=== PATIENT | male | born 1970 | race Caucasian/White ===

== ENCOUNTER 2018-04-14 08:45 | Inpatient (IN) | payer OTHER ==
[2018-04-14] MEDS ORDERED: HYDROmorphONE/DILAUDID 2 MG/ML INJ IVP ONE (09:13)
--- NOTE | 2018-04-14 09:17 | EDPHY ---
H & P Time Seen by Provider: 04/14/18 09:02 HPI/ROS: CHIEF COMPLAINT: Left knee injury HISTORY OF PRESENT ILLNESS: 47-year-old male presents to the emergency department complaining of severe pain in his left knee and left leg. The patient was at work and was coming down a ladder that slipped and his leg went through the [place] of the ladder. He complains of severe pain in his left knee and his left leg. He is unable to bear weight and unable to fully extend his left knee secondary to severe pain. He did not hit his head or lose consciousness. Denies neck or back pain. Denies pain in his chest or difficulty breathing. Denies abdominal pain. Denies injuries to the right lower extremity or upper extremities bilaterally. He believes his tetanus shot is current. He last had some juice and water at 730 this morning. No solid food today. REVIEW OF SYSTEMS: Constitutional: No fever, no chills. Eyes: No double or blurry vision. ENT: No sore throat. Respiratory: No cough, no shortness of breath. Cardiac: No chest pain. Gastrointestinal: No abdominal pain, vomiting or diarrhea. Genitourinary: No dysuria. Musculoskeletal: No neck or back pain. Skin: Abrasions. No rashes. Neurological: No headache. Past Medical/Surgical History: Marijuana use Social History: Works in [employer] Smoking Status: Heavy smoker Physical Exam: General Appearance: Alert, moderate to severe distress. Moaning. Eyes: Pupils equal and round. Extraocular motions are all intact. ENT: Mouth: Mucous membranes moist. Respiratory: No wheezing, rhonchi, or rales, lungs are clear to auscultation. Cardiovascular: Regular rate and rhythm. Gastrointestinal: Abdomen is soft and nontender, no masses, no rebound or guarding, bowel sounds normal. Neurological: Alert and oriented x 3, cranial nerves II through XII grossly intact Skin: Superficial abrasions noted to the anterior and medial aspect of the right knee. There also superficial abrasions to his left lower leg and left anterior ankle. Warm and dry, no rashes. Musculoskeletal: Nontender to palpate along the cervical, thoracic or lumbar spine. Neck is supple. Extremities: The patient is holding his left knee in 90 degrees of flexion. He is unable to extend his left knee. Psychiatric: Patient is oriented X 3, there is no agitation. Constitutional: Initial Vital Signs Heart Rate 85 04/14/18 08:45 Respiratory Rate 18 04/14/18 08:45 O2 Sat (%) 99 04/14/18 08:45 O2 Delivery Mode Room Air Allergies/Adverse Reactions: No Known Allergies Allergy (Unverified 04/14/18 08:50) Home Medications: Medication Instructions Recorded NK [No Known Home Meds] 04/14/18 Medical Decision Making - Diagnostics Imaging Results: Imaging Impressions Knee X-Ray 04/14/18 08:58 Impression: Severely comminuted proximal tibial fracture. PORTABLE CROSSTABLE LATERAL LEFT TIBIA-FIBULA, at 9:31 AM: There is incomplete visualization of the aforementioned proximal tibial fracture. The fibular shaft is intact, as are the mid and distal portions of the tibial shaft. There is no ankle joint effusion. Impression: Comminuted proximal tibial fracture. Tibia/Fibula X-Ray 04/14/18 09:12 Impression: Severely comminuted proximal tibial fracture. PORTABLE CROSSTABLE LATERAL LEFT TIBIA-FIBULA, at 9:31 AM: There is incomplete visualization of the aforementioned proximal tibial fracture. The fibular shaft is intact, as are the mid and distal portions of the tibial shaft. There is no ankle joint effusion. Impression: Comminuted proximal tibial fracture. Extremity CT 04/14/18 12:02 Impression: 1. Complex tibial plateau fracture with splaying of fracture fragments. 2. Medial subluxation of the distal femur with respect to the proximal tibia. 3. Hemarthrosis involving the knee joint, suprapatella bursa, and Mckenzie's cyst with fluid fat levels related to the recent fracture. 4. Scattered gas bubbles are present as detailed above. This could be associated with a laceration or open fracture. Imaging: Discussed imaging studies w/ director call Radiologist, I viewed and interpreted images myself ED Course/Re-evaluation: 47-year-old male presents to the emergency department with severe left knee pain. The patient initially was unable to extend the left knee beyond 90 degrees. He was given a total of 2 mg of IV Dilaudid and 5 mg of IV Valium. He was able to extend his left knee out a bit more. He maintain good peripheral pulses including posterior tibial and dorsalis pedis. I spoke with the on-call orthopedic surgeon, Dr. Kiley Orellana, who also evaluated the patient's x-rays and recommended that he be splinted. The patient will require surgery but Dr. Kiley Orellana would like to ideally wait for 1 week to surgically repair this if possible. He understands the patient is in significant distress as far as pain and he required 5 people to help assist him into the bed. He will be admitted to the hospitalist Dr. Kiley Orellana will come evaluate the patient in the hospital to discuss surgical options. Dr. Kiley Orellana recommended obtaining CT scan of the patient's left knee while he was in the emergency department. CT scan was reviewed by Dr. Tres Quiroz. He did report that there were some scattered gas bubbles within the joint with concerns for possible open fracture. On examination there is a superficial abrasion to the anterior medial aspect of the knee however no evidence of puncture wound or evidence of open fracture. This was discussed with supervising physician, Dr. Lucie Serrano, who also evaluated the patient and agrees that there is no evidence of open fracture on exam. The patient has had no previous surgeries to his knee or aspiration or tap of the knee. Waiting to hear back from Dr. Kiley Orellana regarding findings on CT scan. Spoke with Dr. Kiley Orellana who will look at the patient's CT scan. He did not recommend any antibiotics. He was not concerned about the gas bubbles seen on CT scan. Again clinically I do not think this patient has an open fracture. He will be sent to the floor admitted to hospitalist. Differential Diagnosis: Including but not limited to fracture, dislocation, contusion, sprain, internal derangement of the left knee, vascular compromise - Data Points Laboratory Results: Laboratory Results 04/14/18 09:15 04/14/18 09:15 04/14/18 04/14/18 09:15 09:15 WBC 15.72 10^3/uL H 10^3/uL (3.80-9.50) RBC 5.19 10^6/uL 10^6/uL (4.40-6.38) Hgb 15.7 g/dL g/dL (13.7-17.5) Hct 45.9 % % (40.0-51.0) MCV 88.4 fL fL (81.5-99.8) MCH 30.3 pg pg (27.9-34.1) MCHC 34.2 g/dL g/dL (32.4-36.7) RDW 13.0 % % (11.5-15.2) Plt Count 386 10^3/uL 10^3/uL (150-400) MPV 9.1 fL fL (8.7-11.7) Neut % (Auto) 66.1 % % (39.3-74.2) Lymph % (Auto) 25.6 % % (15.0-45.0) Posey % (Auto) 6.2 % % (4.5-13.0) Eos % (Auto) 0.9 % % (0.6-7.6) Baso % (Auto) 0.4 % % (0.3-1.7) Nucleat RBC Rel Count 0.0 % % (0.0-0.2) Absolute Neuts (auto) 10.40 10^3/uL H 10^3/uL (1.70-6.50) Absolute Lymphs (auto) 4.03 10^3/uL H 10^3/uL (1.00-3.00) Absolute Monos (auto) 0.97 10^3/uL H 10^3/uL (0.30-0.80) Absolute Eos (auto) 0.14 10^3/uL 10^3/uL (0.03-0.40) Absolute Basos (auto) 0.06 10^3/uL 10^3/uL (0.02-0.10) Absolute Nucleated RBC 0.00 10^3/uL 10^3/uL (0-0.01) Immature Gran % 0.8 % % (0.0-1.1) Immature Gran # 0.12 10^3/uL H 10^3/uL (0.00-0.10) Sodium 137 mEq/L mEq/L (135-145) Potassium 4.2 mEq/L mEq/L (3.3-5.0) Chloride 101 mEq/L mEq/L (97-110) Carbon Dioxide 21 mEq/l L mEq/l (22-31) Anion Gap 15 mEq/L mEq/L (8-16) BUN 15 mg/dL mg/dL (7-23) Creatinine 1.0 mg/dL mg/dL (0.7-1.3) Estimated GFR > 60 Glucose 180 mg/dL H mg/dL (70-100) Calcium 9.4 mg/dL mg/dL (8.5-10.4) Medications Given: Hydromorphone HCl (Dilaudid) 2 mg PO Q4HRS PRN PRN Reason: Pain, Severe Able to Take PO Stop: 04/24/18 13:30 Last Admin: 04/14/18 15:16 Dose: 2 mg Hydromorphone HCl (Dilaudid) 0.2 - 0.4 mg IVP Q4HRS PRN PRN Reason: Pain, Severe Unable to Take PO Stop: 04/24/18 13:30 Last Admin: 04/14/18 14:37 Dose: 0.4 mg Discontinued Medications Diazepam (Valium) 5 mg IVP EDNOW ONE Stop: 04/14/18 11:06 Last Admin: 04/14/18 11:20 Dose: 5 mg Diazepam (Valium) 5 mg IVP EDNOW ONE Stop: 04/14/18 12:39 Last Admin: 04/14/18 12:48 Dose: 5 mg Hydromorphone HCl (Dilaudid) 1 mg IVP EDNOW ONE Stop: 04/14/18 09:14 Last Admin: 04/14/18 09:19 Dose: 1 mg Hydromorphone HCl (Dilaudid) 1 mg IVP EDNOW ONE Stop: 04/14/18 09:52 Last Admin: 04/14/18 09:54 Dose: 1 mg Departure - Departure Disposition: [facility] Inpatient Acute Clinical Impression: Closed fracture of left proximal tibia Qualifiers: Encounter type: initial encounter Fracture morphology: unspecified fracture morphology Qualified Code(s): S82.102A - Unspecified fracture of upper end of left tibia, initial encounter for closed fracture Condition: Fair
[2018-04-14] MEDS ORDERED: HYDROmorphONE/DILAUDID 1 MG/ML INJ IVP ONE (09:51)
[2018-04-14] MEDS ORDERED: DIAZEPAM 5 MG/ML 1 ML SYR IVP ONE ×2 (11:05→12:38)
[2018-04-14 13:04] LABS: PLATELET COUNT 386 10^3/uL (150-400)
[2018-04-14] MEDS ORDERED: ONDANSETRON DISINTEGRATING 4 MG TAB PO PRN (13:31)
[2018-04-14] MEDS ORDERED: ONDANSETRON 4 MG/2 ML VIAL IVP PRN (13:31)
[2018-04-14] MEDS ORDERED: ACETAMINOPHEN 325 MG TAB PO PRN (13:31)
[2018-04-14] MEDS ORDERED: LORazepam 2 MG/ML INJ IVP PRN (13:31)
[2018-04-14] MEDS: HYDROmorphONE/DILAUDID 1 MG/ML INJ IVP PRN ×2 (14:37→18:35)
[2018-04-14] MEDS: HYDROmorphONE/DILAUDID 2 MG TAB PO PRN ×2 (15:16→19:25)
--- NOTE | 2018-04-14 15:21 | GHP ---
DATE OF ADMISSION: 04/14/2018 CHIEF COMPLAINT: Left knee pain. HISTORY OF PRESENT ILLNESS: The patient is a 47-year-old male who presented to the emergency room [place] [facility] today complaining of severe pain in his left knee and leg. The patient was at work and was climbing down off a ladder, when he slipped and his leg went through the hole of the ladder. He stat es he was feeling fine until this point. He is unable to bear weight and unable to fully extend his left knee secondary to pain. He did not hit his head, lose any consciousness. He denies any neck or back pain. He denies any chest pain, shortness of breath or dyspnea. He has no abdominal pain. De nies any other injuries, has no other specific complaints. REVIEW OF SYSTEMS: A comprehensive 10-point review of systems is negative other than noted in the HP I. PAST MEDICAL HISTORY: Benign. PAST SURGICAL HISTORY: Benign. SOCIAL HISTORY: The patient smokes marijuana occasionally. He works in [employer]. He denies any othe r recreational drugs. He is a heavy smoker. FAMILY HISTORY: Noncontributory to this hospital course. PHYSICAL EXAM: VITAL SIGNS: Afebrile at 36.6, pulse 73, respiratory rate 17, blood pressure 153/97. He is saturating 97% on room air. GENERAL: The patient is alert, in moderate distress. HEENT: N ormocephalic, atraumatic. Mucosal membranes are moist. Pupils equal, round, reactive to light. RES PIRATORY: Lungs are clear to auscultation bilaterally. No rhonchi or wheezes noted. CARDIOVASCULAR : Reveals a regular rate and rhythm. No gallop or murmur appreciated. GASTROINTESTINAL/ABDOMEN: B owel sounds are positive. Soft and nontender. There is no guarding or rigidity noted. NEUROLOGICAL : The patient is intact with no focal deficits appreciated. SKIN: Superficial abrasions to the rig ht knee. Warm and dry. No rashes appreciated. MUSCULOSKELETAL: Intact. EXTREMITIES: Left knee h as pain. ALLERGIES: None. HOME MEDICATIONS: None. IMAGING: Knee x-ray noted severely comminuted proximal tibial fracture. Extremity CT noting a compl ex tibial plateau fracture with splaying of fracture fragments, as well as medial subluxation of the distal femur, as well as potential scattered gas bubbles. LABORATORY EVALUATION: White count is 15.7. ASSESSMENT AND PLAN: The patient is a 47-year-old male who presented to the emergency room with comp laints of severe left knee pain. He was evaluated and diagnosed with a left complex tibial plateau f racture secondary to slipping on a ladder. He will be admitted to the hospital for pain management, as he is unable to bear weight at this time. He has been consulted on by Dr. Orellana of Orthopedics. S urgical intervention will be warranted in the future, but Dr. Orellana would like to hold off at this liane e to see if the swelling can subside. We will continue pain management during this hospitalization. The patient's knee has been braced. He will be admitted to observation status, as I anticipate that his pain will be controlled and he will be able to be discharged from the hospital after a short sta y. I have reviewed the patient's care with Marcia Pratt of the emergency room. Further action will be taken as needed during the patient's hospitalization. He will be placed on Lovenox for deep veno us thrombosis prophylaxis. /[id number]/MODL
[2018-04-14] MEDS ORDERED: BISACODYL 10 MG SUPP PR PRN (16:35)
[2018-04-14] MEDS ORDERED: MAGNESIUM HYDROXIDE 30 ML UDCUP PO PRN (16:35)
[2018-04-14] MEDS ORDERED: LACTULOSE 20 GM/30 ML UDCUP PO PRN (16:35)
[2018-04-14] MEDS ORDERED: HYDROmorphONE/DILAUDID 1 MG/ML INJ IVP PRN (19:00)
[2018-04-14] MEDS ORDERED: NALOXONE HCL 0.4 MG/ML INJ IVP PRN (19:54)
--- NOTE | 2018-04-14 19:58 | GCON ---
INPATIENT CONSULTATION REPORT DATE OF CONSULTATION: 04/14/2018 CURRENT COMPLAINT: Left leg pain. HISTORY OF PRESENT ILLNESS: Mr. 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 He caught his leg within the rungs. Landed directly on the ground had pain and deformity at his leg. Seen in the emergency room. He was diagnosed with a tibial plateau fractu re. I was asked to see the patient for further evaluation. PHYSICAL EXAMINATION: The patient is in significant pain. He has a long leg posterior splint in [facility]. However, the bed he is currently in does not allow the leg to rise, so his knee is currently low er than his heart, which is creating more swelling. Attempt was made to move the foot of the bed wit hout result. His foot is neurologically intact on the dorsal, lateral, and plantar portions of the f oot. EHL and FHL remain intact. He has no pain to passive range of motion through the toes, suggest ing he does not have compartment syndrome. IMAGING: X-ray exam reveals a comminuted fracture of the proximal tibia, including the tibial platea u, particularly on the lateral side with impaction of the lateral femoral condyle into the knee. CT exam reveals even more comminution, with involvement of the medial condyle, making this a bicondylar tibial plateau fracture with involvement of the shaft. ASSESSMENT AND PLAN: Patient is status post left tibial plateau fracture, Bicondylar. Patient is go ing to need his leg and knee strictly elevated. Keeping the knee above the level of his heart at all times as much as possible for the next week or 2. Due to the severe nature of his injury, particula rly involving both condyles, it will take at least a week, if not 2, for the swelling to come down en ough in the leg to allow the skin to be opened and then closed again. Surgery done sooner than this will mean that the skin is unable to be closed after fracture fixation, creating further issues for t he patient. He is to increase his calcium intake. His pain medication was increased in order to cover the severe amount of pain he is going to [facility] for the next several days if not for over a week. He should not be given any antiinflammatories, so that a healing response can continue to occur. He has already been placed on blood thinners, whic h is going to be appropriate given the amount of sedentary activity he is going to have for the next several weeks. We will continue to monitor his skin over the next week or 2 and once he starts to morfin ve wrinkles within the skin, we will consider definitive fixation of his bicondylar tibial plateau fr acture. I will continue to follow the patient while he is here in the hospital. /[id number]/MODL
[2018-04-14] MEDS: HYDROmorphONE/DILAUDID 6 MG/30 ML PCA IV PRN (20:39)
[2018-04-15] MEDS: traMADol 50 MG TAB PO SCH ×4 (00:04→17:53)
[2018-04-15] MEDS: ACETAMINOPHEN 325 MG TAB PO SCH ×4 (00:04→17:52)
[2018-04-15] MEDS: HYDROmorphONE/DILAUDID 2 MG TAB PO PRN ×3 (00:05→13:01)
[2018-04-15] MEDS: SENNOSIDES/DOCUSATE SODIUM TAB PO SCH ×3 (00:35→21:10)
[2018-04-15] MEDS: DIAZEPAM 5 MG TAB PO PRN ×3 (01:03→17:53)
[2018-04-15] MEDS: HYDROmorphONE/DILAUDID 6 MG/30 ML PCA IV PRN (07:44)
[2018-04-15] MEDS: ENOXAPARIN 40 MG/0.4 ML SYR SC SCH (10:42)
--- NOTE | 2018-04-15 12:02 | ASMTCMCOM ---
CM Note CM Note Notes: 04/15/2018 Case Management Note Reviewed chart. Pt admitted after falling off a ladder for treatment of a left proximal tibial plateau fracture. Per Dr. Orellana note, swelling needs to decrease before surgery can be considered. 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 Pt was independent in ADLs prior to admission. PT evals are pending. Case Management d/c poc: to be determined. Case Management to follow. Date Signed: 04/15/2018 12:01 PM Electronically Signed By:Domonique Cao RN
--- NOTE | 2018-04-15 16:09 | SOAPPROG ---
SOAP Progress Note Assessment/Plan: Assessment: Plan: Subjective: states he's much more comfortable today but still has some pain splint intact remains NVI with neg pain to PROM of toes cont elevation and NWB will need to assess skin in approx one week Objective: Vital Signs Temp Pulse Resp BP Pulse Ox 37.0 C 74 17 162/96 H 97 04/15/18 14:00 04/15/18 14:00 04/15/18 14:00 04/15/18 14:00 04/15/18 14:00 04/14/18 04/15/18 04/16/18 05:59 05:59 05:59 Intake Total 1250 Output Total 300 Balance 950 ICD10 Worksheet Patient Problems: Problems Problem Status Onset Closed fracture of left proximal tibia Acute
--- NOTE | 2018-04-15 17:17 | ASMTCMCOM ---
CM Note CM Note Notes: OT rec inpatient rehab, PT rec SNF. Pt likely has no local support for d/c planning, not safe to return home. Pt likely not currently qualify/benefit from [facility] inpatient rehab due to NWB and minimal activity. Pt likely needs SNF to convalesce until surgery then will need to see what he needs/qualifies for. No [employer] claim #, [employer] worker is Zahra Quintana [phone] voicemail left for her late Wednesday they do not work weekends so possibly Wednesday before call is returned. CM to follow. D/c plan of care: TBD depending on what work comp will pay for Date Signed: 04/15/2018 04:58 PM Electronically Signed By:VANESSA Bauer
--- NOTE | 2018-04-15 17:40 | HOSPPROG ---
Hospitalist Progress Note Assessment/Plan: DIAGNOSES: * COMMINUTED PROXIMAL TIBIA FRACTURE AFTER FALL ON A LADDER * SIGNIFICANT EDEMA AT THE KNEE PRECLUDING CURRENT SURGICAL REPAIR * HYPERGLYCEMIA TIME OF ADMISSION, UNCERTAIN IF THERE FOR BUT SINCE ONSET OF TYPE 2 DIABETES OR STRESS FROM INJURY PLANS: * Continue elevation of leg and compression with Norris wraps * Pain management * DVT prophylaxis * Dr. Orellana is still recommending delaying surgery untill the patient has notable reduction and edema, reassess after weekend * Will check hemoglobin A1c and follow sugars here SUBJECTIVE: Still with some pain at knee but tolerating it reasonably well No other new symptoms OBJECTIVE VITALS REVIEWED: Stable without fever EXAM: ALERT ORIENTED, IN BED SUPINE WITH LEG ELEVATED ON PILLOWS IN NORRIS WRAPS SKIN WARM DRY COLOR OK RESPS NOT LABORED LUNGS CLEAR BSS HEART REGULAR ABD SOFT NONDISTENDED NONTENDER, BOWEL SOUNDS PRESENT LIMBS WARM, NO EDEMA; GOOD NEUROVASCULAR FUNCTION AT LEFT TOES IV SITE OK Objective: Vital Signs Temp Pulse Resp BP Pulse Ox 36.6 C 80 19 157/90 H 91 L 04/15/18 16:00 04/15/18 16:00 04/15/18 16:00 04/15/18 16:00 04/15/18 16:00 04/14/18 04/15/18 04/16/18 06:59 06:59 06:59 Intake Total 1250 Output Total 300 Balance 950 ICD10 Worksheet Patient Problems: Problems Problem Status Onset Closed fracture of left proximal tibia Acute
[2018-04-16] MEDS: traMADol 50 MG TAB PO SCH ×4 (00:57→18:06)
[2018-04-16] MEDS: ACETAMINOPHEN 325 MG TAB PO SCH ×4 (00:57→18:06)
[2018-04-16] MEDS: HYDROmorphONE/DILAUDID 6 MG/30 ML PCA IV PRN (00:58)
[2018-04-16] MEDS: SENNOSIDES/DOCUSATE SODIUM TAB PO SCH ×2 (10:09→20:52)
[2018-04-16] MEDS: POLYETHYLENE GLYCOL 3350 17 GM PKT PO PRN (10:09)
[2018-04-16] MEDS: ENOXAPARIN 40 MG/0.4 ML SYR SC SCH (10:09)
--- NOTE | 2018-04-16 12:24 | HOSPPROG ---
Hospitalist Progress Note Assessment/Plan: 47-year-old man fell off a ladder sustaining a commuted proximal tibial fracture. Swelling was too significant to proceed with surgery so the plan is to monitor him over the weekend with re-evaluation for surgery on Wednesday. His pain is well controlled currently. # commuted proximal tibia fracture, Dr. Orellana to re-evaluate on Wednesday * Continue leg elevation and pain control * DVT prophylaxis * pt needs additional midnight stay for pain contol and monitoring due to severity of fracture and need for surgical repair # hyperglycemia time of admission, most blood sugars have been stable since admission will discontinue blood sugars Subjective: Patient new to me and chart reviewed. 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 Objective: Vital Signs Temp Pulse Resp BP Pulse Ox 36.8 C 95 18 170/107 H 88 L 04/16/18 12:00 04/16/18 12:00 04/16/18 12:00 04/16/18 12:00 04/16/18 12:00 04/15/18 04/16/18 04/17/18 05:59 05:59 05:59 Intake Total 1250 300 Output Total 300 950 Balance 950 -650 - Physical Exam Constitutional: no apparent distress Eyes: PERRL Ears, Nose, Mouth, Throat: moist mucous membranes Cardiovascular: regular rate and rhythym Respiratory: no respiratory distress, clear to auscultation Gastrointestinal: normoactive bowel sounds Genitourinary: no bladder fullness Skin: warm Musculoskeletal: full muscle strength, other (Fracture left knee, wrapped in Norris wrap) Neurologic: AAOx3 Psychiatric: interacting appropriately ICD10 Worksheet Patient Problems: Problems Problem Status Onset Closed fracture of left proximal tibia Acute
[2018-04-16] MEDS: METHOCARBAMOL 750 MG TAB PO PRN ×2 (12:37→15:26)
[2018-04-16] MEDS ORDERED: HYDROmorphone HCL/NS 0.5 MG/ML SYR IVP PRN (13:00)
[2018-04-16] MEDS ORDERED: HYDROmorphone HCL 0.5 MG/0.5 ML SYR IVP PRN (15:00)
--- NOTE | 2018-04-16 15:00 | ASMTCMCOM ---
CM Note CM Note Notes: Pt be re-assessed Wednesday for potential surgery. PT is limited because pt cannot do much. OT rec SNF. Pt adamant he will not go to SNF or inpatient rehab, wants to go home or he may have a friend he can stay with. D/c plan of care: Pt trying to find a friend he can stay with at d/c Date Signed: 04/16/2018 02:59 PM Electronically Signed By:VANESSA Bauer
--- NOTE | 2018-04-16 17:30 | PDMN ---
Medical Necessity Medical necessity: MCG : pain management pt with pending sgy for comminuted proximal tibial fx. Pain controlled with CUSTOMS ENTRY CLERK awaiting re-eval from ortho. status change 04/16/@ 16:28
[2018-04-16] MEDS: HYDROmorphONE/DILAUDID 2 MG TAB PO PRN (20:52)
[2018-04-17] MEDS: ACETAMINOPHEN 325 MG TAB PO SCH ×4 (00:31→17:45)
[2018-04-17] MEDS: traMADol 50 MG TAB PO SCH ×4 (00:31→17:46)
[2018-04-17] MEDS: SENNOSIDES/DOCUSATE SODIUM TAB PO SCH ×2 (08:19→20:20)
[2018-04-17] MEDS: METHOCARBAMOL 750 MG TAB PO PRN (08:19)
[2018-04-17] MEDS: POLYETHYLENE GLYCOL 3350 17 GM PKT PO PRN (08:19)
[2018-04-17] MEDS: ENOXAPARIN 40 MG/0.4 ML SYR SC SCH (08:20)
[2018-04-17] MEDS: HYDROmorphONE/DILAUDID 2 MG TAB PO PRN ×2 (08:29→15:04)
--- NOTE | 2018-04-17 09:08 | HOSPPROG ---
Hospitalist Progress Note Assessment/Plan: 47-year-old man fell off a ladder sustaining a commuted proximal tibial fracture. Swelling was too significant to proceed with surgery so the plan is to monitor him over the weekend with re-evaluation for surgery on Wednesday. His pain is well controlled currently. # commuted proximal tibia fracture, Dr. Orellana to re-evaluate on Wednesday. Pain a little worse this morning, feels that splint has moved but also off of IV pain meds. * Continue leg elevation and pain control, discussed with Dr. Ferrara who will look at leg today * DVT prophylaxis * change muscle relaxant to scheduled * pt needs additional midnight stay for pain contol and monitoring due to severity of fracture and need for surgical repair # Elevated BP, Has checked it at grocery stores and it has been elevated, likely has HTN * add lisinopril. # hyperglycemia time of admission, most blood sugars have been stable since admission will discontinue blood sugars Subjective: Pt complains of more pain in knee, feels his splint has moved. Objective: Vital Signs Temp Pulse Resp BP Pulse Ox 36.6 C 97 16 160/96 H 95 04/17/18 08:00 04/17/18 08:00 04/17/18 08:00 04/17/18 08:00 04/17/18 08:00 04/16/18 04/17/18 04/18/18 05:59 05:59 05:59 Intake Total 1200 Output Total 450 225 Balance 750 -225 - Physical Exam Constitutional: uncomfortable Eyes: PERRL, EOMI Ears, Nose, Mouth, Throat: moist mucous membranes Cardiovascular: regular rate and rhythym Respiratory: no respiratory distress Gastrointestinal: normoactive bowel sounds, soft, non-tender abdomen Skin: warm Musculoskeletal: other (splint and aniya on left leg.) Neurologic: AAOx3 Psychiatric: interacting appropriately, not anxious ICD10 Worksheet Patient Problems: Problems Problem Status Onset Closed fracture of left proximal tibia Acute
[2018-04-17] MEDS: METHOCARBAMOL 750 MG TAB PO SCH ×3 (11:04→20:19)
[2018-04-17] MEDS: LISINOPRIL 10 MG TAB PO SCH (11:04)
[2018-04-18] MEDS: ACETAMINOPHEN 325 MG TAB PO SCH ×3 (01:27→13:12)
[2018-04-18] MEDS: traMADol 50 MG TAB PO SCH ×3 (01:27→13:11)
[2018-04-18] MEDS: HYDROmorphONE/DILAUDID 2 MG TAB PO PRN ×4 (03:04→16:08)
[2018-04-18] MEDS: METHOCARBAMOL 750 MG TAB PO SCH ×2 (05:34→13:12)
[2018-04-18 07:35] VITALS: BP 149/97
[2018-04-18] MEDS: LISINOPRIL 10 MG TAB PO SCH (08:33)
[2018-04-18] MEDS: SENNOSIDES/DOCUSATE SODIUM TAB PO SCH (08:40)
--- NOTE | 2018-04-18 11:05 | HOSPPROG ---
Hospitalist Progress Note Assessment/Plan: 47-year-old man fell off a ladder sustaining a commuted proximal tibial fracture. Swelling was too significant to proceed with surgery so the plan is to monitor him over the weekend with re-evaluation for surgery on Wednesday. His pain is getting a little bit worse over the last 12 hr. Having more muscle spasms. # commuted proximal tibia fracture, discussed with orthopedics PA who will have someone from her practice come see the patient today. Pain a little worse this morning, feeling sharp pains going down leg. * Continue leg elevation and pain control, * DVT prophylaxis * change muscle relaxant to scheduled * pt needs additional midnight stay for pain contol and monitoring due to severity of fracture and need for surgical repair # Elevated BP, Has checked it at grocery stores and it has been elevated, likely has HTN * add lisinopril. # hyperglycemia time of admission, most blood sugars have been stable since admission will discontinue blood sugars Subjective: Having more pain in his left leg describes shooting pain down the leg intermittently. Objective: Vital Signs Temp Pulse Resp BP Pulse Ox 36.6 C 74 16 149/97 H 95 04/18/18 07:35 04/18/18 07:35 04/18/18 07:35 04/18/18 07:35 04/18/18 07:35 04/17/18 04/18/18 04/19/18 05:59 05:59 05:59 Intake Total 1200 300 Output Total 450 225 Balance 750 75 - Physical Exam Constitutional: uncomfortable Cardiovascular: regular rate and rhythym Respiratory: no respiratory distress Musculoskeletal: other (Splint on left leg) ICD10 Worksheet Patient Problems: Problems Problem Status Onset Closed fracture of left proximal tibia Acute
--- NOTE | 2018-04-18 12:20 | SOAPPROG ---
MAILCK Progress Note Assessment/Plan: Assessment: Jose R is s/p left tibial plateau fracture after falling off of a ladder. He reports his pain is some worse today with shooting pain down the pavon. He denies any numbness, tingling, etc PE: Upon evaluation left leg. Well molded posterior splint in place. Padding was opened up and skin was evaluated. Skin is taught due to swelling. Moderate swelling but compartments are soft throughout the lower leg. No pain with compression of the calf. DP pulse 2+. Patient able to dorsiflex and plantarflex the digits. Sensation is intact to light touch. Plan: This patient was discussed with Dr. Alaniz. The skin is too taught at this point to do surgery. It is likely that it will be several days to a week before the swelling is down enough to do surgery. He will remain NWB in the posterior splint with the leg elevated. 04/18/18 15:34 Objective: Vital Signs Temp Pulse Resp BP Pulse Ox 36.6 C 74 16 149/97 H 95 04/18/18 07:35 04/18/18 07:35 04/18/18 07:35 04/18/18 07:35 04/18/18 07:35 04/17/18 04/18/18 04/19/18 05:59 05:59 05:59 Intake Total 1200 300 Output Total 450 225 Balance 750 75 ICD10 Worksheet Patient Problems: Problems Problem Status Onset Closed fracture of left proximal tibia Acute
--- NOTE | 2018-04-18 15:49 | GDS ---
DIAGNOSES: 1. Complex tibial plateau fracture. 2. High blood pressure. PROCEDURES DONE: Extremity CT confirming complex tibial plateau fracture with splaying of fracture f ragments and medial subluxation of the distal femur with respect to the proximal tibia. CONSULTATIONS: Dr. Kiley Orellana, orthopedics. HOSPITAL COURSE: The patient is a 47-year-old admitted after he fell off a ladder. He sustained a c omplex tibial plateau fracture and was admitted initially and evaluated by Dr. Orellana. At the time of initial evaluation, he had significant swelling at the site of his leg, so Dr. Orellana was unable to pro ceed with surgery, although the patient does have a surgical fracture. He was monitored in the [facility] for pain control as well as swelling and his pain has become better managed with oral medications . However, the swelling is still persistent and he needs surgery at a later date unfortunately. He is to follow up with Dr. Nando Alaniz at [facility] for orthopedics at the end of the week for f urther evaluation of his leg and swelling. In the meantime, I will discharge him with Robaxin for mu scle relaxants and Dilaudid orally for pain. The patient also had notable increased blood pressure during his hospitalization and was started on l isinopril. CONDITION ON DISCHARGE: Good. He is comfortable. Vital signs are stable except for slightly elevat ed blood pressure. MEDICATIONS ON DISCHARGE: Please see medicine discharge med sheet. FOLLOWUP: The patient needs to follow up with Dr. Alaniz for his tibial plateau fracture at the en d of the week. The patient is to follow up with Ak[facility] for blood pressure recheck on his lisinopril. Total time spent in consultation with patient on day of discharge and coordination of care is 35 cholo hima. /[id number]/MODL
== END 2018-04-18 16:49 | disposition home or self-care (01) | DRG 563 ==
LOC: F3N 14:17 → OBSVTOIN 04-16 16:28
PROVIDERS: ADMIT Internal Medicine; ATTEND Internal Medicine
DX: S82.142A Displaced bicondylar fracture of left tibia, initial encounter for closed fracture (principal); W11.XXXA Fall on and from ladder, initial encounter; I10 Essential (primary) hypertension; R73.9 Hyperglycemia, unspecified
CPT/HCPCS: 96374; 97116-GP; 97161-GP; 97165-GO; 97530-GO; 97535-GO; G0378; J1170; J1650; J3360

== ENCOUNTER 2018-04-25 07:39 | Observation (INO) | payer OTHER ==
--- NOTE | 2018-04-22 14:38 | GHP ---
DATE OF ADMISSION: 04/25/2018 DATE OF PLANNED PROCEDURE: April 25, 2013. PLANNED PROCEDURE: Open reduction, internal fixation, left tibial plateau fracture. 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 He was initially admitted to the hospital for pain control and compartment checks. However, he w as too swollen initially to undergo surgery. He then was discharged home. He returned back to the [facility] last week. Swelling has subsided substantially, so we have decided to proceed with an open red uction, internal fixation of his tibial plateau fracture. PAST MEDICAL HISTORY: None. PAST SURGICAL HISTORY: None. MEDICATIONS: Dilaudid 2 mg, lisinopril 10 mg, and methocarbamol 750 mg. ALLERGIES: No known drug allergies. SOCIAL HISTORY: He smokes 1 pack per day. Reports occasional alcohol use. He does use marijuana. He works for [employer]. He does live alone here in town. REVIEW OF SYSTEMS: No shortness of breath, chest pain. Otherwise, review of systems unremarkable. PHYSICAL EXAM: Vital SIGNS: He is 6 feet 2 inches tall, weighs 220 pounds. Blood pressure is 131/7 6, pulse is 87, respiratory rate is 16 on room air. GENERAL: Alert and oriented x3. HEENT: Normoc ephalic, atraumatic. Extraocular muscles intact. NECK: Supple. There is no lymphadenopathy. No J VD. CHEST: Clear to auscultation. CARDIOVASCULAR: Regular rate and rhythm. ABDOMEN: Soft, nonte nder, nondistended. EXTREMITIES: Left lower extremity is in a long-leg splint. This was removed in the clinic today to inspect his skin. It is intact. He has a superficial abrasion over the anterio r compartment of his leg. It is healing nicely. There is a 2+ effusion to the knee. Lower extremit y compartments are swollen, but soft. 2+ dorsalis pedis and posterior tibial pulses. He has good an kle dorsiflexion, inversion and eversion all measuring 5/5. X-RAYS: CT scans are reviewed. He has a bicondylar split depression fracture of the lateral tibial condyle and a smaller posterior medial fracture. ASSESSMENT: Bicondylar tibial plateau fracture, left. PLAN: We will proceed with open reduction, internal fixation of his tibial plateau fracture on at the hospital. We placed him into a knee immobilizer. He is to continue to ice and elevate over the weekend. I renewed his prescription for Dilaudid. He will need this postoperatively as well. We will admit him overnight for observation due to the high risk of compartment syndrome following th is complex injury. He understands that. His preoperative paperwork was completed. Risks and benefi ts including infection, nonunion and malunion were all discussed. Posttraumatic arthritis in the kne e joint was discussed as well. He understands these risks and wished to proceed. /[id number]/MODL
[2018-04-25] MEDS ORDERED: ceFAZolin 2 GM/DEXTROSE 100 ML IV ONE (07:47)
[2018-04-25] MEDS ORDERED: LIDOCAINE 1% 2 ML INJ ID PRN (07:49)
[2018-04-25] MEDS ORDERED: LR 1,000 ML IV ONE (07:49)
[2018-04-25] MEDS ORDERED: ONDANSETRON 4 MG/2 ML VIAL ONE ×2 (08:50→11:05)
[2018-04-25] MEDS ORDERED: DEXAMETHASONE 4 MG/ML VIAL ONE ×2 (08:50→11:05)
[2018-04-25] MEDS ORDERED: LIDOCAINE 2% 100 MG/5 ML SYR ONE (08:50)
[2018-04-25] MEDS ORDERED: MIDAZOLAM 2 MG/2 ML VIAL ONE (08:50)
[2018-04-25] MEDS ORDERED: LIDOCAINE 0.5% 50 ML SDV ONE (08:50)
[2018-04-25] MEDS ORDERED: fentaNYL 250 MCG/5 ML INJ ONE (08:51)
--- NOTE | 2018-04-25 08:58 | PDANEPAE ---
ANE History of Present Illness L tibial Plateau Fx ORIF ANE Past Medical History - Cardiovascular History Hx Hypertension: Yes Hx Arrhythmias: No Hx Chest Pain: No Hx Coronary Artery / Peripheral Vascular Disease: No Hx CHF / Valvular Disease: No Hx Palpitations: No - Pulmonary History Hx COPD: No Hx Asthma/Reactive Airway Disease: No Hx Recent Upper Respiratory Infection: No Hx Oxygen in Use at Home: No Hx Sleep Apnea: No Sleep Apnea Screening Result - Last Documented: Positive - Neurologic History Hx Cerebrovascular Accident: No Hx Seizures: No Hx Dementia: No - Endocrine History Hx Diabetes: No - Renal History Hx Renal Disorders: No - Liver History Hx Hepatic Disorders: No - Neurological & Psychiatric Hx Hx Neurological and Psychiatric Disorders: No - Cancer History Hx Cancer: No - Congenital Disorder History Hx Congenital Disorders: No - GI History Hx Gastrointestinal Disorders: No - Other Health History Other Health History: FELL 04/14/18 SUSTAINING LT KNEE FX - Chronic Pain History Chronic Pain: No - Surgical History Prior Surgeries: NEG ANE Review of Systems Review of Systems: - Exercise capacity METS (RN): 5 METS ANE Patient History - Allergies Allergies/Adverse Reactions: No Known Allergies Allergy (Unverified 04/14/18 08:50) - NPO status NPO Since - Liquids (Date): 04/25/18 NPO Since - Liquids (Time): 07:00 NPO Since - Solids (Date): 04/24/18 NPO Since - Solids (Time): 19:30 - Smoking Hx Smoking Status: Heavy smoker - Family Anes Hx Family Hx Anesthesia Complications: NEG ANE Labs/Vital Signs - Vital Signs Blood Pressure: 119/80 Heart Rate: 86 Respiratory Rate: 15 O2 Sat (%): 96 Height: 187.96 cm Weight: 99.79 kg
--- NOTE | 2018-04-25 09:22 | PDHPUP ---
History & Physical Update H&P update statement: This history and physical update is based on an assessment of the patient which was completed after admission or registration (within 24 hours), but prior to the surgery/procedure. H&P update: H&P reviewed & patient examined, no change in patient's condition since H&P completed
[2018-04-25] MEDS ORDERED: POLYMYXIN B SULFATE 500,000 UNIT/10 ML SYR IRR ONE (09:33)
[2018-04-25] MEDS ORDERED: BUPIVACAINE/EPI 0.5% 30 ML SDV ONE (09:33)
[2018-04-25] MEDS ORDERED: THROMBIN (BOVINE) 5,000 UNIT VIAL TP ONE (10:16)
[2018-04-25] MEDS ORDERED: CALCIUM CHLORIDE 1 GM/10 ML INJ ONE (10:16)
[2018-04-25] MEDS ORDERED: PHENYLEPHRINE 10 MG/ML SDV ONE ×2 (10:36→11:13)
[2018-04-25] MEDS ORDERED: BUPIVACAINE/DEXTROSE 7.5MG/ML 2 ML SPINAL AMP SP ONE (10:36)
[2018-04-25] MEDS ORDERED: PROMETHAZINE HCL 25 MG/ML INJ IVP PRN (11:04)
[2018-04-25] MEDS ORDERED: ALBUTEROL 3 ML DEYVIAL IH PRN (11:04)
[2018-04-25] MEDS ORDERED: NALOXONE HCL 0.4 MG/ML INJ IVP PRN (11:04)
[2018-04-25] MEDS ORDERED: HYDROmorphONE/DILAUDID 1 MG/ML INJ IVP PRN (11:04)
[2018-04-25] MEDS ORDERED: KETOROLAC 30 MG/1 ML SDV ONE (11:05)
[2018-04-25] MEDS ORDERED: ROPIVACAINE HCL 150 MG/30 ML INJ ONE (11:56)
[2018-04-25] MEDS ORDERED: METOCLOPRAMIDE 10 MG/2 ML VIAL IVP PRN (12:00)
[2018-04-25] MEDS ORDERED: ONDANSETRON DISINTEGRATING 4 MG TAB PO PRN (12:00)
[2018-04-25] MEDS ORDERED: TEMAZEPAM 15 MG CAP PO PRN (12:00)
[2018-04-25] MEDS ORDERED: DIPHENOXYLATE/ATROPINE LOMOTIL 1 TAB PO PRN (12:00)
[2018-04-25] MEDS ORDERED: diphenhydrAMINE 25 MG CAP PO PRN (12:00)
[2018-04-25] MEDS ORDERED: CYCLOBENZAPRINE 10 MG TAB PO PRN (12:00)
[2018-04-25] MEDS ORDERED: LR 1,000 ML IV SCH (12:00)
[2018-04-25] MEDS ORDERED: POLYETHYLENE GLYCOL 3350 17 GM PKT PO PRN (12:00)
[2018-04-25] MEDS ORDERED: KETOROLAC 15 MG/1 ML SDV IVP ONE (12:00)
[2018-04-25] MEDS ORDERED: BISACODYL 10 MG SUPP PR PRN (12:00)
[2018-04-25] MEDS ORDERED: MAGNESIUM HYDROXIDE 30 ML UDCUP PO PRN (12:00)
[2018-04-25] MEDS ORDERED: LACTULOSE 20 GM/30 ML UDCUP PO PRN (12:00)
[2018-04-25] MEDS ORDERED: ONDANSETRON 4 MG/2 ML VIAL IVP PRN (12:00)
--- NOTE | 2018-04-25 12:00 | POSTOPPROG ---
Post Op Note Date of Operation: 04/25/18 Surgeon: Nando Alaniz Insurance Sales Professional: jean Herman Anesthesiologist: Fabi Anesthesia: Spinal Pre-op Diagnosis: LT tibial plateau fx Post-op Diagnosis: same Procedure: ORIF Lt tibial plateau fx Findings: comminuted medial and lateral tibial plateau fx Inf/Abcess present in the surg proc area at time of surgery?: No EBL: 50-100 Complications: none
--- NOTE | 2018-04-25 12:26 | GOP ---
DATE OF OPERATION: 04/25/2018 SURGEON: Nando Alaniz MD CITY BAILIFF: Luigi Herman CST. ANESTHESIA: Spinal with LMA, adductor canal block. ANESTHESIOLOGIST: Mitzi Dunlap DO PREOPERATIVE DIAGNOSIS: Tibial plateau fracture, left. POSTOPERATIVE DIAGNOSIS: Tibial plateau fracture, left. PROCEDURE PERFORMED: 1. Open reduction, internal fixation, tibial plateau fracture. 2. Platelet-rich plasma injection, left tibia. 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 Initially, he was admitted to the hospital for compartment checks. He was then discharged home. When his swelling had decreased, he was sunil t to the operating room for definitive fixation of this fracture. DESCRIPTION OF PROCEDURE: After appropriate informed consent was obtained, patient was taken to the operating room, placed supine on the operating table. Time-out was performed. Patient was identifie d, correct site was identified, matched with the radiographs and CT scan that were available in the r oom. He received 2 g of Ancef preoperatively. Following a spinal anesthetic and placement of an LMA , he was positioned on the operating room table. All bony prominences were well padded. Left lower extremity was prepped and draped in usual sterile fashion. I exsanguinated the limb, inflated the to urniquet to 250 mmHg. I used a standard lateral utility incision, carefully dissecting the soft tissues. Bleeding was cont rolled with electrocautery. Incised the fascia overlying the anterior compartment and elevated the m uscle off the proximal tibia. I split the distal IP band and entered the joint capsule being careful to protect the meniscal capsular ligament. I made a small 2 cm incision on the medial side toward t he posterior aspect of the joint and able to reduce the posterior medial fragment. Then while lookin g at the joint, I opened up the lateral side, and using a bone tamp, I was able to tamp up bone to re establish the joint surface while I was looking through the lateral side of the joint. We then used some Norian to fill the void in the proximal tibia. I then reduced the fracture and with a large ten aculum clamp around the posterior medial aspect of the joint, as well as through the plate that we morfin murtaza slid down submuscularly on the lateral side. We were able to reduce the fracture, confirm its redu ction with AP and lateral fluoroscopic imaging. We then placed 3 locking Rafter screws from lateral to medial and then 2 compression screws in the shaft of the plate pulling the plate and reduced in th e knee into straight alignment, then a series of locking screws were placed through the remainder of the holes in the plate. Wound was irrigated. I placed 10 cc of PRP into the lateral aspect of the joint, as well as along th e fracture site. The fascia overlying the anterior muscles were closed with 0 Vicryl, as was the IT band. Superficial layer was closed 2 Vicryl. Skin was closed with mariana. I instilled 30 cc of 0. 5% Marcaine with epinephrine on the incisions. A soft sterile dressing and knee immobilizer were elva jodi on the patient. The patient was awakened from anesthesia, taken to the recovery room in satisfac tory condition. There were no immediate intraoperative complications. Luigi Herman's assistance was required throughout the entire case. IMPLANTS USED: Synthes precontoured proximal tibial plate 3.5 mm. COMPLICATIONS: None. DRAINS: None. TOTAL TOURNIQUET TIME: 79 minutes at 250 mmHg. /[id number]/MODL
[2018-04-25] MEDS: ACETAMINOPHEN 325 MG TAB PO SCH ×3 (13:27→23:37)
[2018-04-25] MEDS: HYDROmorphONE/DILAUDID 4 MG TAB PO PRN ×3 (13:38→23:40)
[2018-04-25] MEDS ORDERED: DIAZEPAM 5 MG TAB PO PRN (15:28)
--- NOTE | 2018-04-25 15:45 | POSTANESTH ---
Post Anesthetic Evaluation Cardiovascular Status: Normal, Stable Respiratory Status: Normal, Stable Level of Consciousness/Mental Status: Can Participate in Eval Pain Control: Adequate, Prn Tx Ordered Nausea/Vomiting Control: Adequate, Prn Tx Ordered Complications Possibly Related to Anesthesia: None Noted (Before leaving PACU could move bilateral lower extem with generalized weakness)
[2018-04-25] MEDS: KETOROLAC 15 MG/1 ML SDV IVP SCH ×2 (18:40→23:37)
[2018-04-25] MEDS: ceFAZolin 2 GM/DEXTROSE 100 ML IV SCH (18:41)
[2018-04-25] MEDS: SENNOSIDES/DOCUSATE SODIUM TAB PO SCH (21:55)
[2018-04-25] MEDS: ASPIRIN 325 MG TAB PO SCH (21:56)
[2018-04-25] MEDS: FAMOTIDINE 20 MG TAB PO SCH (21:56)
[2018-04-26] MEDS: ceFAZolin 2 GM/DEXTROSE 100 ML IV SCH (02:42)
[2018-04-26] MEDS: HYDROmorphONE/DILAUDID 4 MG TAB PO PRN ×3 (03:30→12:51)
[2018-04-26] MEDS: KETOROLAC 15 MG/1 ML SDV IVP SCH ×2 (06:15→11:49)
[2018-04-26] MEDS: ACETAMINOPHEN 325 MG TAB PO SCH ×2 (06:15→11:50)
[2018-04-26] MEDS ORDERED: LISINOPRIL 10 MG TAB PO SCH (09:00)
[2018-04-26] MEDS: SENNOSIDES/DOCUSATE SODIUM TAB PO SCH (09:04)
[2018-04-26] MEDS: ASPIRIN 325 MG TAB PO SCH (09:05)
[2018-04-26] MEDS: FAMOTIDINE 20 MG TAB PO SCH (09:05)
[2018-04-26 11:52] VITALS: BP 141/79
--- NOTE | 2018-04-26 12:52 | SOAPPROG ---
SOAP Progress Note Assessment/Plan: Assessment: Plan: 04/26/18 12:51 POD#1 LT ORIF tib plateau NWB x 4-6 weeks ASA 325 mg daily x 14 days may remove dressing and shower F/U [place] 05/12 DC home Subjective: pain controlled Objective: dressing c/d/i calf soft 5/5 df/pf/inv/ev 1+ dp/tp pulses compartments soft Vital Signs Temp Pulse Resp BP Pulse Ox 36.7 C 75 16 141/79 H 98 04/26/18 11:51 04/26/18 11:51 04/26/18 11:51 04/26/18 11:51 04/26/18 11:51 04/25/18 04/26/18 04/27/18 05:59 05:59 05:59 Intake Total 2200 500 Output Total 1850 180 Balance 350 320 ICD10 Worksheet Patient Problems: Problems Problem Status Onset Closed fracture of left proximal tibia Acute
--- NOTE | 2018-04-26 16:18 | ASMTLACE ---
LACE Length of stay for Answers: 2 days current admission Acuity / Level of Answers: No Care: Did the patient have an inpatient admission? Comorbidities - select Answers: Other Notes: HTN all that apply # of Emergency department Answers: 1-2 visits in the last 6 months Score: 4 Date Signed: 04/26/2018 04:17 PM Electronically Signed By:VANESSA Bauer
--- NOTE | 2018-04-26 16:20 | ASMTCMCOM ---
CM Note CM Note Notes: Pt came back to [facility] for surgery on tibial plateau fx. Pt medically stable for d/c, PT/OT rec home. No CM d/c needs identified. Date Signed: 04/26/2018 04:19 PM Electronically Signed By:VANESSA Bauer
== END 2018-04-26 15:35 | disposition home or self-care (01) ==
LOC: FSGY 07:39 → F3E 12:00 → F3N 13:16
PROVIDERS: ADMIT Orthopaedic Surgery; ATTEND Orthopaedic Surgery
DX: S82.142A Displaced bicondylar fracture of left tibia, initial encounter for closed fracture (principal); W11.XXXA Fall on and from ladder, initial encounter; Y93.H9 Activity, other involving exterior property and land maintenance, building and construction; Y99.0 Civilian activity done for income or pay; I10 Essential (primary) hypertension; F17.210 Nicotine dependence, cigarettes, uncomplicated
CPT/HCPCS: 27535; 73560; 76001; 97161; 97165; C1769; G0378; C1713; J0690; J1100; J1885; J2001; J2250; J2370; J2405; J2795; J3010